=== PATIENT | female | born 1945 | race Caucasian/White ===

== ENCOUNTER 2017-09-12 20:14 | Emergency (ER) | payer BC, MEDICARE ==
[~2017-09-12] VITALS: Ht 167.6 cm; Wt 84.1 kg
[2017-09-12 20:30] VITALS: BP 134/69; PULSE 80; RESP 20; TEMP 98.1; O2SAT 97
--- NOTE | 2017-09-12 20:38 | PD ---
HPI Chief Complaint: Complaint Time Seen by Provider: 20:37 Travel History International Travel<30 days: No Contact w/Intl Traveler<30days: No Traveled to known affect area: No History of Present Illness HPI 72-year-old female patient with history of microscopic hematuria in the past, presents to the ER today because she saw a red blood in her urine today. She denies any dysuria, fevers, nausea, vomiting, abdominal pains, or any other symptoms. Modifying Factors: None Associated Signs & Symptoms: Blood in the urine Risk Factors: Previous history of microscopic hematuria PFSH Past Surgical History Hysterectomy: Yes Social History Tobacco Use: No Allergies-Medications (Allergen,Severity, Reaction): Uncoded Allergies: tape (Adverse Reaction, Unknown, 09/12/17) Review of Systems Except as stated in HPI: all other systems reviewed are Neg Physical Exam Narrative GENERAL: Well-nourished, well-developed elderly female patient in no acute distress. SKIN: Focused skin assessment warm/dry. HEAD: Normocephalic. EYES: No scleral icterus. No injection or drainage. NECK: Supple, trachea midline. No JVD or lymphadenopathy. CARDIOVASCULAR: Regular rate and rhythm without murmurs, gallops, or rubs. RESPIRATORY: Breath sounds equal bilaterally. No accessory muscle use. GASTROINTESTINAL: Abdomen soft, non-tender, nondistended. MUSCULOSKELETAL: No cyanosis, or edema. BACK: Nontender without obvious deformity. No CVA tenderness. Data Data Last Documented VS Vital Signs Date Time Temp Pulse Resp B/P (MAP) Pulse Ox O2 Delivery O2 Flow Rate FiO2 09/12/17 20:30 98.1 80 20 134/69 (90) 97 Orders Orders Urinalysis - C+S If Indicated (09/12/17 20:37) Labs Laboratory Tests Test 09/12/17 20:48 Urine Collection Type CLEAN CATCH Urine Color YELLOW Urine Turbidity SL CLOUDY Urine pH 5.5 Urine Specific [place] GREATER/EQUAL 1.030 Urine Protein NEG mg/dL Urine Glucose (UA) NEG mg/dL Urine Ketones TRACE mg/dL Urine Occult Blood SMALL Urine Nitrite NEG Urine Bilirubin NEG Urine Urobilinogen 0.2 MG/DL Urine Leukocyte Esterase NEG Urine RBC 4-9 /hpf Urine WBC 0-2 /hpf Urine Squamous Epithelial Cells 0-5 /hpf Urine Calcium Oxalate Crystals FEW /hpf Urine Mucus FEW /lpf Microscopic Urinalysis Comment CULT NOT INDICATED [facility] Medical Decision Making Medical Screen Exam Complete: Yes Emergency Medical Condition: Yes Medical Record Reviewed: Yes Interpretation(s) Laboratory Tests Test 09/12/17 20:48 Urine Ketones TRACE mg/dL (NEG) Urine Occult Blood SMALL (NEG) Urine RBC 4-9 /hpf (0-3) Urine Calcium Oxalate Crystals FEW /hpf (NONE) Urine Mucus FEW /lpf (OCC) Differential Diagnosis Hematuria: UTI versus cystitis Narrative Course UA shows red blood cells in the urine but did not show any signs a UTI. Patient is not on any anticoagulation. Patient has had history of this in the past and at this point, my plan would be to release her with follow-up to primary care physician and possibly urology regarding this issue. Return for new issues as needed. The plan has been discussed with her and she states understanding. Diagnosis Primary Impression: Hematuria Disposition: 01 DISCHARGE HOME Condition: Stable SoonDayna russell MD Sep 12, 2017 20:38
[2017-09-12 21:07] LABS: BILIRUBIN, URINE NEG (NEG); BLOOD, URINE SMALL (NEG); GLUCOSE,URINE NEG (NEG); KETONE, URINE TRACE mg/dL (NEG); NITRITE,URINE NEG (NEG); PH, URINE 5.5 (5.0-8.5); URINE COLOR YELLOW (YELLW/STRAW); URINE LEUKOCYTE ESTERASE NEG (NEG)
[2017-09-12 21:39] LABS: MUCUS URINE FEW /lpf (OCC); SQUAMOUS EPITHELIAL CELL URINE 0-5 /hpf (0-5)
[2017-09-12 21:40] LABS: CALCIUM OXALATE CRYSTALS,URINE FEW /hpf; WBC, URINE 0-2 /hpf (0-5)
[2017-09-12 22:10] VITALS: BP 130/88
== END 2017-09-12 22:11 | disposition home or self-care (01) ==
LOC: PHED 20:14
DX: R31.9 Hematuria, unspecified (principal)
CPT/HCPCS: 81001; 99283